=== PATIENT | male | born 1980 | race Hispanic/Latino ===

== ENCOUNTER 2019-04-25 22:06 | Emergency (ER) | payer SELFPAY ==
[2019-04-25] MEDS ORDERED: Fluorescein Opthalmic Strip ONE (23:14)
[2019-04-25] MEDS ORDERED: Proparacaine 0.5% Opth 15 ML BOT ONE (23:14)
== END 2019-04-25 23:38 | disposition home or self-care (01) ==
LOC: ERS 22:06
DX: H57.89 Other specified disorders of eye and adnexa (principal)
CPT/HCPCS: 99283

== ENCOUNTER 2021-02-20 19:02 | Emergency (ER) | payer SELFPAY ==
[~2021-02-20 19:02] MED LIST: Iopamidol-370 76% 500 ML 1 ML ONE
[2021-02-20 19:43] LABS: #Eosinphils 0.1 thou/uL (0.0-0.7); #Lymphocytes 0.7 thou/uL (1.20-3.40); #Monocytes 0.4 thou/uL (0.11-0.59); #Neutrophils 7.4 thou/uL (1.40-6.50); %Basophils 0.3 % (0.0-1.0); %Eosinophils 0.6 % (0.0-10.0); %Lymphocytes 8.5 % (21.0-51.0); %Monocytes 4.7 % (0.0-10.0); %Neutrophils 85.9 % (42.0-75.0); Hemoglobin 15.5 g/dL (14.0-18.0); Mean Corpuscular HGB CONC 34.2 g/dL (32.0-36.0); Mean Corpuscular Hemoglobin 29.9 pg (27.0-31.0); Mean Corpuscular Volume 87.3 fL (78.0-98.0); Mean Platelet Volume 6.6 fL (7.4-10.4); Platelet Count 291 thou/uL (130-400); RBC Distribution Width 12.4 % (11.5-14.5); Red Blood Cell (RBC) Count 5.18 mill/uL (4.70-6.10); White Blood Cell (WBC) Count 8.7 thou/uL (4.8-10.8)
[2021-02-20] MEDS ORDERED: Dexamethasone 10 MG/ML VIAL ONE (19:43)
[2021-02-20 20:05] LABS: ALT (SGPT) 102 U/L (8-55); AST (SGOT) 74 U/L (5-34); Albumin 3.9 g/dL (3.5-5.0); Alkaline Phosphatase 232 U/L (40-110); Anion Gap 15 mmol/L (10-20); BUN (Urea Nitrogen) 9 mg/dL (8.9-20.6); Bilirubin, Total 0.4 mg/dL (0.2-1.2); Calc. Creatinine Clearance 0 mL/min (70-130); Calcium 8.5 mg/dL (7.8-10.44); Carbon Dioxide 22 mmol/L (22-29); Chloride 103 mmol/L (98-107); Globulin 3.5 g/dL (2.4-3.5); Glucose 125 mg/dL (70-105); Protein, Total 7.4 g/dL (6.0-8.3); Sodium 136 mmol/L (136-145)
[2021-02-20] MEDS ORDERED: Acetaminophen 650 MG Suppository PR PRN (20:43)
[2021-02-20] MEDS ORDERED: Calcium Carbonate 500 MG ChewTAB PO PRN (20:43)
[2021-02-20] MEDS ORDERED: Ondansetron PF 4 MG/2 ML Vial IVP PRN (20:43)
[2021-02-20] MEDS ORDERED: Ondansetron ODT 4 MG TAB PO PRN (20:43)
[2021-02-20] MEDS ORDERED: Acetaminophen 325 MG TAB PO PRN (20:43)
[2021-02-20] MEDS ORDERED: Lactated Ringer's 1,000 ML IV SCH (21:15)
[2021-02-21] MEDS ORDERED: Dexamethasone 4 MG TAB PO SCH (08:00)
[2021-02-21] MEDS ORDERED: Enoxaparin Sodium 40 MG/0.4 ML SYRINGE SC SCH (09:00)
== END 2021-02-20 21:41 | disposition home or self-care (01) ==
LOC: ERS 19:02
DX: U07.1 COVID-19 (principal)
CPT/HCPCS: 36415; 71045; 71275; 80053; 83605; 84145; 85025; 85652; 86140; 93005; 96374; J1100; Q9967